=== PATIENT | male | born 1985 | race Caucasian/White ===

== ENCOUNTER 2016-09-10 12:10 | Inpatient (IN) | payer MEDICAID ==
[2016-09-10] VITALS (8 sets, daily range): BP systolic 79–109; BP diastolic 54–85; Ht 182.9 cm; Wt 77.3 kg
[~2016-09-10] VITALS: Ht 182.9 cm; Wt 77.3 kg
[2016-09-10 13:31] LABS: BASOPHILS 0 % (0-2); EOSINOPHILS 0.5 % (0-7); HEMATOCRIT 38.6 % (42.0-54.0); HEMOGLOBIN 12.6 g/dL (13.5-17.5); IMMATURE GRANULOCYTES 0.3 % (0-5); LYMPHOCYTES 5.6 % (15-50); MCH 29.4 pg (26.0-34.0); MCHC 32.6 g/dL (31.0-37.0); MEAN PLATELET VOLUME 10.5 fL (7.4-10.4); MONOCYTES 0.5 % (2-11); NEUTROPHILS 93.1 % (40-80); PLATELET COUNT 127 10x3/uL (130-400); RBC 4.29 10x6/uL (4.20-6.10); RDW 14.8 % (11.5-14.5); WBC 3.8 10x3/uL (4.8-10.8)
[2016-09-10 13:44] LABS: ALBUMIN 2.9 g/dL (3.4-5.0); ALKALINE PHOSPHATASE 82 U/L (46-116); ALT (SGPT) 51 U/L (10-68); BILIRUBIN - TOTAL 0.75 mg/dL (0.2-1.3); CALC OSMOLALITY 277 mosm/kg (275-300); CALCIUM 7.2 mg/dL (8.5-10.1); CARBON DIOXIDE 23.3 mmol/L (21.0-32.0); CHLORIDE - SERUM 105 mmol/L (98-107); CREATININE - SERUM 0.9 mg/dL (0.6-1.3); GLUCOSE 108 mg/dL (74-106); POTASSIUM - SERUM 3.5 mmol/L (3.5-5.1); PROTEIN - SERUM 5.7 g/dL (6.4-8.2); SODIUM 138 mmol/L (136-145); UREA NITROGEN 16 mg/dL (7-18); eGFR NON AFRICAN AMERICAN > 90 mL/min (90-120)
[2016-09-10 14:51] LABS: APPEARANCE CLEAR (CLEAR); COLOR YELLOW (YELLOW); LEUKOCYTE ESTERASE TRACE (NEGATIVE); SPECIFIC GRAVITY 1.005 (1.005-1.020)
[2016-09-10 14:52] LABS: BACTERIA MODERATE /hpf (NONE SEEN); BILIRUBIN NEGATIVE (NEGATIVE); EPITHELIAL CELLS 0-5 /hpf (0-5); GLUCOSE NEGATIVE (NEGATIVE); KETONE NEGATIVE (NEGATIVE); NITRITE NEGATIVE (NEGATIVE); PROTEIN NEGATIVE (NEGATIVE); RED CELLS - URINE 0-5 /hpf (0-5); UROBILINOGEN NORMAL (NORMAL); WHITE CELLS - URINE 0-5 /hpf (0-5)
--- NOTE | 2016-09-10 16:39 | NUR ---
ASSESSMENT COMPLETE PER FLOWSHEET. VOICES NO CO AT TIME.
--- NOTE | 2016-09-10 19:00 | NUR ---
SHIFT ASSESSMENT COMPLETE, SEE FLOWSHEET.
--- NOTE | 2016-09-10 20:00 | NUR ---
PATIENT PULLED OUT IV'S AND IS PERSISTENT ON LEAVING. LET HIM KNOW THAT HE IS NOT IN THE POSISTION TO LEAVE AND IS SICK. ALSO THAT INSURANCE PROVIDERS WILL NOT COVER IT. STATED THAT HE STILL WANTS TO LEAVE.
--- NOTE | 2016-09-10 20:15 | NUR ---
SPOKE WITH DR ANDRADE ABOUT PATIENT DEMANDING TO LEAVE THE HOSPITAL. PAPERWORK SIGNED. PATIENT LEFT.
== END 2016-09-10 20:20 | disposition left against medical advice (07) | DRG 872 ==
LOC: D.ER 12:10 → D.ICU 15:40
PROVIDERS: Emergency Medicine; ADMIT Family Medicine
DX: A41.9 Sepsis, unspecified organism (principal); F15.10 Other stimulant abuse, uncomplicated; Z72.0 Tobacco use